=== PATIENT | male | born 1965 | race Caucasian/White ===

== ENCOUNTER 2023-08-24 13:21 | Emergency (ER) | payer BC, SELFPAY ==
[2023-08-24 13:31] VITALS: BP 133/78; PULSE 104; RESP 22; TEMP 36.7; O2SAT 97
--- NOTE | 2023-08-24 14:48 | ED.GENADUL_ITS ---
Discharge Plan Discharge Details Chief Complaint: Orthopedic Primary Care Provider: None,None ED Provider: Aden Gaspar [facility] General Date/Time Provider Initiated Documentation: 08/24/23 13:43 . HPI Narrative: 58 year-old male presents to ED today by POV/ambulating with a chief complaint of recently drove across the country to move to the area- he had a minor injury on stairs while in [place] about 2 weeks ago, since then has noticed some bruising and increased leg swelling with discoloration with onset the past few days. Quality described as painful and taut skin in his calf with some warmth to touch posterior lower calf, no radiation to medial thigh pain, history of blood clots, atrial fibrillation. Severity is described as 8/10. Palliating factors include has been using compression sock. Provoking factors include nothing [facility]. Patient has no PCP established in the area. Patient not anticoagulated. General Stated Complaint: Orthopedic JHONNY: 3 Review of Systems All systems reviewed & are unremarkable except as noted in HPI and below Exam Narrative Exam Narrative: GENERAL APPEARANCE: Well-nourished, non-toxic, awake and alert, atraumatic, no acute distress. SKIN: Warm, pink, dry, intact, without rashes/lesions/ulcerations. HEAD: Normocephalic, atraumatic, normal hair distribution for gender/age. EYES: Pupils PERRLA, EOMs intact without nystagmus, normal conjunctiva, no exudates on lids/lashes. ENT: Nares patent, no circumoral cyanosis, no facial swelling NECK: Supple, trachea midline, painless cervical ROM. LUNGS/CHEST: Non-labored respirations, normal A/P diameter, symmetrical expansion, no chest wall deformity HEART (CV/PV): Regular rate, L dorsalis pedis pulse 2+, no peripheral edema, no JVD. ABDOMEN: Soft, non-distended, no guarding. MSK: Normal ROM, no swelling/deformity to bilateral UEs or LEs, moving all extremities without weakness, no cyanosis, spine midline without tenderness, normal curvature. L LE: 3 x 2 cm area of some ruborous skin changes in the left posterior inferior calf, suspicious for superficial thrombophlebitis, he has 2+ pitting edema in this extremity, no medial thigh tenderness, Homans negative, neurovascularly intact in the distal lower extremity NEURO: Mental Status AAOx4 - alert to person, place, time, events No facial droop, no forehead involvement. Motor: No focal weakness - strength 5/5 in bilateral UEs and LEs, proximal and distal, symmetric. Sensory: sensation intact to light touch globally. Gait normal: patient ambulated without ataxia into ED room. PSYCH: euthymic, cooperative, pleasant, appropriate speech Course Vital Signs Vital signs: Vital Signs Temperature 36.7 C 08/24/23 13:31 Pulse 104 H 08/24/23 13:31 Respiratory Rate 22 08/24/23 13:31 Blood Pressure 133/78 08/24/23 13:31 Pulse Oximetry 97 08/24/23 13:31 Temperature 36.7 C 08/24/23 13:31 Temperature Source Oral 08/24/23 13:31 Pulse 104 H 08/24/23 13:31 Respiratory Rate 22 08/24/23 13:31 Respiratory Effort Normal, Non-Labored 08/24/23 13:36 Blood Pressure 133/78 08/24/23 13:31 Blood Pressure Position Sitting 08/24/23 13:31 Pulse Oximetry 97 08/24/23 13:31 Oxygen Delivery Method Room Air 08/24/23 13:31 Oxygen Flow Rate 0 08/24/23 13:31 Pain Level 2 08/24/23 13:31 Medical Decision Making This dictation utilizes [id number] dictation software and may contain unedited grammatical errors. 58 y/o M presents to ED today with a chief complaint of L LE swelling post minor injury on stairs 2 weeks ago in [place], recently drove across the country to move here- having increased swelling, pitting edema, and some skin changes suspicious for clot pathology. Patients' medical history: no atrial fibrillati on, no clot history. Family and social history: recent sedentary period driving from [place] to here. Pertinent exam findings / vital signs include L LE: 3 x 2 cm area of some ruborous skin changes in the left posterior inferior calf, suspicious for superficial thrombophlebitis, he has 2+ pitting edema in this extremity, no medial thigh tenderness, Homans negative, neurovascularly intact in the distal lower extremity. Differential / pathologies of concern include superficial thrombophlebitis, strain, lymphedema, less likely DVT. Diagnostic studies of: -D-dimer, U/S not available today - discussed risk factors, and area of his skin changes as well away from the deep venous system, patient prefers to wait for anticoagulation until U/S available likely tomorrow in ED- has no PCP follow-up for outpatient study. Interventions of: -Compression wrap. ED Course/Assessment/Plan: 58-year-old male presents with left calf swelling some skin changes suspicious for superficial thrombophlebitis, he is concerned for blood clot. He did just recently drive from [place] to here to move to the area and has no PCP follow-up. I discussed D-dimer as well as his skin changes being well away from the deep venous system and depending on D-dimer result he may opt for Lovenox and return for ultrasound versus just returning for ultrasound as he has no medial thigh tenderness and Homans is negative, do not suspect cellulitic pathology, this may be dependent edema after a sprain of his knee that he suffered 2 weeks ago in [place] with bruising to the left fibular head area. Patient signed out to Vaishnavi Evans PA-C with D-dimer pending. Findings not consistent with DVT - . Disposition of Left Lower Leg Pain. Patient verbalized understanding of the plan and return to ED criteria and engaged in shared decision making. Quality:[facility] Related Social Needs: No Data to Display [facility] Social History Smoking risk assessment performed?: No Sign Out Sign Out Data: Sign Out Comment: Possible superficial thrombophelbitis or DVT, or dependent edema in setting of knee sprain and obesity. Pending D-dimer, Potential Lovenox or DOAC and return to ED for official U/S Last updated by Aden Gaspar PA at 08/24/23 15:40
[2023-08-24 15:50] LABS: D-Dimer 615 ng/mlFEU (<500)
--- NOTE | 2023-08-24 16:21 | NUR.NOTE ---
Referral given to Care Managers for assistance Establishing a Primary Care Provider as soon as available.
[2023-08-24 16:41] VITALS: PULSE 90; RESP 15; O2SAT 98
== END 2023-08-24 16:48 | disposition home or self-care (01) ==
PROVIDERS: Physician Assistant; Emergency Provider Physician Assistant
DX: R22.42 Localized swelling, mass and lump, left lower limb (principal); R79.1 Abnormal coagulation profile
CPT/HCPCS: 99283; 85379

== ENCOUNTER 2023-08-25 13:30 | Emergency (ER) | payer BC, SELFPAY ==
[2023-08-25 13:33] VITALS: BP 156/76; PULSE 93; RESP 16; TEMP 37.1; O2SAT 98
--- NOTE | 2023-08-25 13:42 | ED.GENADUL_ITS ---
Discharge Plan Disposition Patient Disposition: Home Condition: Stable Discharge Details Clinical Impression: Left leg swelling, Hematoma Primary Care Provider: None,None ED Provider: Miguel Ángle Vasques Home Meds and New Rx's Prescriptions: Continued amlodipine 5 mg tablet 5 mg PO DAILY lisinopril 20 mg tablet 20 mg PO DAILY hydrochlorothiazide 25 mg tablet 25 mg PO DAILY levothyroxine 137 mcg capsule 137 mcg PO DAILY Discharge Instructions Instructions: Hematoma (ED) Additional Instructions: The ultrasound did not show any blood clot, you do have a hematoma Can continue using the compression stockings and keep your leg elevated is much as possible If not improving within 1 to 2 weeks he can follow-up with express care You feel more ill, or have severe worsening pain return to the emergency department for reevaluation HPI General Mode of arrival: ambulatory . Date/Time Provider Initiated Documentation: 08/25/23 13:31 . Limitations to Documentation: no limitations . Information obtained by: patient . History of Present Illness 58 year old M presents to the emergency department with the chief complaint of Follow-up after ultrasound, left lower leg discomfort/swelling, described as moderate, Quality is described as aching, Patient started experiencing this week(s) (2) and it has been constant. No relieving factors improve symptom(s), No exacerbating factors reported . Patient notes no other symptoms.. Related Data Home Medications Medication Instructions Recorded Confirmed amlodipine 5 mg tablet 5 mg PO DAILY 08/24/23 08/25/23 hydrochlorothiazide 25 mg tablet 25 mg PO DAILY 08/24/23 08/25/23 levothyroxine 137 mcg capsule 137 mcg PO DAILY 08/24/23 08/25/23 lisinopril 20 mg tablet 20 mg PO DAILY 08/24/23 08/25/23 Allergies Allergy/AdvReac Type Severity Reaction Status Date / Time No Known Allergies Allergy Unverified 08/25/23 13:36 General Stated Complaint: Recheck JHONNY: 4 Review of Systems All systems reviewed & are unremarkable except as noted in HPI and below Constitutional Constitutional: Denies chills, Denies fever(s) and Denies weakness Cardiovascular Cardiovascular: Denies chest pain and Denies dyspnea Respiratory Respiratory: Denies cough and Denies dyspnea Gastrointestinal Gastrointestinal: Denies abdominal pain, Denies nausea and Denies vomiting Neurologic Neurologic: Denies weakness Exam Const General: no acute distress Orientation: alert HENMT Head: normal to inspection Ears: external ears normal General nose exam: external nose normal Mouth: moist mucous membranes Eyes General: appearance normal, both eyes and all related structures Neck Neck: normal visual inspection Resp Effort & Inspection: normal respiratory effort and able to speak in complete sentences Cardio Rate: regular rate Skin General skin exam: no rashes or lesions noted Neuro General: patient alert and patient oriented x3 Extrem General: full ROM and capillary refill normal Psych Mental Status: mental status grossly normal Course Vital Signs Vital signs: Vital Signs Temperature 37.1 C 08/25/23 13:33 Pulse 93 H 08/25/23 13:33 Respiratory Rate 16 08/25/23 13:33 Blood Pressure 156/76 H 08/25/23 13:33 Pulse Oximetry 98 08/25/23 13:33 Temperature 37.1 C 08/25/23 13:33 Temperature Source Temporal Artery Scan 08/25/23 13:33 Pulse 93 H 08/25/23 13:33 Respiratory Rate 16 08/25/23 13:33 Respiratory Effort Normal, Non-Labored 08/25/23 13:37 Blood Pressure 156/76 H 08/25/23 13:33 Blood Pressure Position Sitting 08/25/23 13:33 Pulse Oximetry 98 08/25/23 13:33 Oxygen Delivery Method Room Air 08/25/23 13:33 Oxygen Flow Rate 0 08/25/23 13:33 Medical Decision Making 58-year-old male who recently moved to the area and drove across country from [place] comes in after he just had an ultrasound of his left lower leg. He he tripped on stairs a few weeks ago and has had some discomfort of his left lower calf and swelling since, which worsened while he was driving here across the country. He was seen yesterday in the ER and had an elevated D-dimer so came back today for an ultrasound, per the biofuels technology development manager he has no DVT but does have appearance of a hematoma. Patient has some discomfort in the left calf otherwise feels well, has intact sensation and pulses in the foot, does have some bruising of the left posterior calf, does have full range of motion at the knee and ankle. No pain at the insertion site of the Achilles tendon. Signs and ultrasound consistent with hematoma, advised he should keep his leg elevated is much as possible, he is stable for discharge and return precautions given. He has no signs of infection on exam no erythema no warmth so doubt abscess. Differential Diagnosis Differential Diagnosis: Hematoma, muscle strain Quality:SDOH Health Related Social Needs: No Data to Display PFSH All Active Problems (Updated 08/25/23 @ 13:43 by Miguel Ángel Vasques MD) Hematoma (Acute) Left leg swelling (Acute) Social History Smoking/Tobacco Use Status: Never Smoking risk assessment performed?: Yes Alcohol Intake: current Alcohol Intake frequency: 0-2 drinks per day Alcohol type: hard liquor Substance use type: does not use Housing: house Do you feel safe at home: Yes Do you feel safe in your relationship?: Yes
== END 2023-08-25 13:52 | disposition home or self-care (01) ==
PROVIDERS: Emergency Provider Emergency Medicine
DX: T14.8XXA Other injury of unspecified body region, initial encounter (principal); M79.89 Other specified soft tissue disorders; W10.8XXA Fall (on) (from) other stairs and steps, initial encounter; R22.42 Localized swelling, mass and lump, left lower limb
CPT/HCPCS: 99281; 99282

== ENCOUNTER 2024-04-21 02:35 | Outpatient (CLI) | payer BC, SELFPAY ==
[2024-04-21 09:13] LABS: ALT 64 U/L (16-63); AST 26 U/L (15-37); Albumin 3.6 g/dL (3.4-5.0); Alkaline Phosphatase 118 U/L (46-116); Anion Gap 11.3 mmol/L (3-11); BUN 19 mg/dL (7-18); Bilirubin, Total 0.56 mg/dL (0.2-1.0); CO2 25.7 mmol/L (21.0-32.0); CREATININE 1.3 mg/dL (0.70-1.30); Calcium 8.6 mg/dL (8.5-10.1); Calculated LDL 111 mg/dL (<100); Chloride 104 mmol/L (98-107); Cholesterol 182 mg/dL (<200); Estimated GFR 64.07 (mL/min/1.73m2); Glucose 109 mg/dL (74-106); HDL Cholesterol 47 mg/dL (40-60); Potassium 4.3 mmol/L (3.5-5.1); Sodium 141 mmol/L (136-145); TSH 8.23 uIU/mL (0.36-3.74); Total Protein 7.4 g/dL (6.4-8.2); Triglyceride 122 mg/dL (<150)
[2024-04-21 09:50] LABS: FREE T4 1.04 ng/dL (0.76-1.46); NT-proBNP 10 pg/mL (<300)
== END 2024-04-21 02:36 | disposition home or self-care (01) ==
LOC: LBO 02:35
PROVIDERS: PCP Nurse Practitioner Family; Referring Provider Nurse Practitioner Family; Visit Provider Nurse Practitioner Family
DX: I10 Essential (primary) hypertension (principal); E05.00 Thyrotoxicosis with diffuse goiter without thyrotoxic crisis or storm; R60.0 Localized edema; Z00.00 Encounter for general adult medical examination without abnormal findings; R74.8 Abnormal levels of other serum enzymes
CPT/HCPCS: 36415; 80053; 80061; 83880; 84439; 84443

== ENCOUNTER 2024-05-04 01:04 | Outpatient (CLI) | payer BC, SELFPAY ==
--- NOTE | 2024-05-04 06:45 | DI.US_ITS ---
APPROVED REPORT EXAM: Comprehensive 2D, Doppler, and color-flow Echocardiogram Patient Location: Out-Patient Machine Icer: Devika Jefferson RDCS (AE) Indications: Hypertension, Edema Other Information Study Quality: Poor. Technically limited study due to body habitus. Conclusion Technically difficult and very suboptimal study Normal left ventricular wall thickness chamber size and systolic function. Ejection fraction is 55 t o 60%. No wall motion abnormalities are identified Normal right ventricular size Both atria are normal in size Aortic valve is trileaflet and mildly sclerotic without stenosis or regurgitation Within the limits of the study no additional valvular disease is identified Wall motion Left Ventricle The left ventricle is normal size. The overall left ventricular systolic function appears normal. The re is normal left ventricular wall thickness. Regional wall motion is grossly normal. There is no markie tricular septal defect visualized. LVEF is 55-60%. Right Ventricle Right ventricle is grossly normal in size. Atria The left atrium size is normal. The right atrium size is normal. The interatrial septum is intact wit h no evidence for an atrial septal defect. Aortic Valve The aortic valve is mildly sclerotic Aortic valve is trileaflet. There is no aortic valvular stenosis . No aortic regurgitation is present. Mitral Valve The mitral valve is normal in structure. No evidence of mitral valve stenosis. Trace mitral regurgita tion. Tricuspid Valve The tricuspid valve is normal in structure. There is no tricuspid valve stenosis. Trace tricuspid reg urgitation. Unable to assess PA pressure. Pulmonic Valve The pulmonary valve is normal in structure. There is no pulmonic valvular stenosis. Trace pulmonic re gurgitation. Great Vessels The aortic root is normal in size. The ascending aorta is normal in size. IVC is normal in size and c ollapses >50% with inspiration. Pericardium There is no pericardial effusion. 2D Dimensions IVSD d PLAX 0.94 cm M: 0.6-1.2 Ao Root d 2.98 cm M: 3.1 - 3.7 LVPW d PLAX 0.94 cm M: 0.6 - 1.2 Ao Asc Diam d 3.08 cm M: 2.6 - 3.4 LVID d PLAX 4.77 cm M: 4.2 - 5.8 LVDs 3.24 cm M: 2.5 - 4.0 LV EF Teichholz 60.1 % FS 32.00 % LV EDV (Teich) 105.8 mL LV ESV (Teich) 42.2 mL Auto EF LV EDV A4C 125.6 mL LV EDV A2C 99.4 mL LV EDV BP 111.3 mL LV ESV A4C 56.5 mL LV ESV A2C 44.9 mL LV ESV BP 51.0 mL LVEF(%) A4C 55.0 % LVEF(%) A2C 54.8 % LVEF(%) BP 54.2 % LV SV A4C 69.0 ml LV SV A2C 54.4 ml LV SV BP 60.3 ml LV CO A4C 6.1 L/min LV CO A2C 4.7 L/min LV CO BP 5.4 L/min HR A4C 88.46 BPM HR A2C 86.54 BPM LV EDV Index (BP) LA Volume LA Length A4C 5.0 cm LA Length A2C 4.1 cm LA Area A4C s 13.90 cm2 LA Area A2C s 13.06 cm2 LA Vol A4C A-L 32.81 mL LA Vol A2C A-L 35.47 mL LA Vol Biplane A-L 37.8 mL LA Vol/BSA A4C A-L LA Vol/BSA A2C A-L LA Vol/BSA BP A-L 30.2 mL/m2 LA Vol A4C MOD 31.1 mL LA Vol A2C MOD 33.6 mL LA Vol BP MOD 35.7 mL LV Diastology MV E' medial 0.108 (>0.07 m/s) MV E Vmax 0.74 (0.4-1.3 m/s) MV E/E' MED 6.81 (<14) MV A Vmax 0.80 (0.4-1.3 m/s) MV E' lateral 0.099 (>0.1 m/s) E/A Ratio 0.9 MV E/E' LAT 7.43 (<14) MV E' Average 0.104 m/s MV E/E'(average) 7.11 Aortic Valve AoV Vmax 1.15 m/s LVOT Vmax 0.94 m/s AoV Peak Grad 5.3 mmHg LVOT Peak Grad 3.5 mmHg AoV Area (Vmax) 2.55 cm2 LVOT VTI 0.233 m AoV VTI 0.263 m LVOT Mean Grad 2.1 mmHg AoV Mean Brown. 0.85 m/s LVOT SV 72.48 mL AoV Mean Grad 3.3 mmHg LVOT Diam s 1.95 cm AoV Area (VTI) 2.76 cm2 AV Regurg Peak Gr. 5.27 mmHg Velocity Ratio 0.82 Mitral Valve MV DT 212 (160-240 msec) MV Vmax TIPS 0.93 m/s MV Mean Grad 2.0 (<2mmHg) MV VTI 0.184 m Pulmonary Valve PV Vmax 1.22 (0.5-1.5 m/s) RVOT Vmax 0.83 m/s PV Peak Grad 5.9 mmHg RVOT Peak Gr. 2.8 mmHg PV Mean Brown 0.82 m/s RVOT VTI 0.184 m PV Mean Grad 3.1 mmHg RVOT Mean Gr. 1.4 mmHg Tricuspid Valve TV S' 0.14 m/s
== END 2024-05-04 01:24 ==
LOC: DI 01:04
PROVIDERS: PCP Nurse Practitioner Family; Visit Provider Internal Medicine Cardiovascular Disease
DX: I10 Essential (primary) hypertension (principal); R60.0 Localized edema
CPT/HCPCS: 93306

== ENCOUNTER 2024-07-07 13:30 | Emergency (ER) | payer BC, SELFPAY ==
[2024-07-07 13:33] VITALS: BP 139/86; PULSE 97; RESP 17; TEMP 36.9; O2SAT 98
[2024-07-07 13:38] VITALS: BP 139/86; PULSE 97; RESP 17; TEMP 36.9; O2SAT 98
--- NOTE | 2024-07-07 13:45 | DI.RAD_ITS ---
Exam(s) XR CHEST 2V PA LATERAL EXAM: XR CHEST 2V PA LATERAL CLINICAL HISTORY: cough, fever TECHNIQUE: 2D digital imaging was performed of the chest. Two images were obtained. PA and lateral views were obtained. COMPARISON: No exams were available for comparison FINDINGS: MEDIASTINUM: Normal. HEART: Normal. PULMONARY VASCULATURE: Normal. LUNGS: Clear. PLEURAL SPACE: No pleural effusion or pneumothorax. BONE:Within normal limits for the patient's age. OTHER FINDINGS:Normal. IMPRESSION: No acute pulmonary findings. DATA REPOSITORY: RADIATION DOSE DELIVERED:
--- NOTE | 2024-07-07 13:56 | ED.GENADUL_ITS ---
Discharge Plan Disposition Patient Disposition: Home Condition: Stable Discharge Details Clinical Impression: Influenza A, Cough Primary Care Provider: Carolina Inman ED Provider: Miguel Ángel Vasques Home Meds and New Rx's Prescriptions: New oseltamivir 75 mg capsule 75 mg PO Q12H 5 Days Qty: 10 0RF Continued meloxicam 15 mg tablet 15 mg PO DAILY Qty: 30 1RF levothyroxine 150 mcg tablet 150 mcg PO DAILY Qty: 90 3RF tirzepatide 5 mg/0.5 mL pen injector 5 mg subcut QWEEK MDD 5 mg 28 Days Qty: 2 12RF Rx Instructions: Inject 5 mg tirzepatide subcutaneously once weekly as directed. 06/09/2023 PLEASE FILL WITH ZEPBOUND NOT MOUNJARO amlodipine 5 mg tablet 5 mg PO DAILY lisinopril 20 mg tablet 20 mg PO DAILY hydrochlorothiazide 25 mg tablet 25 mg PO DAILY Discharge Instructions Additional Instructions: Your x-ray did not show any concerning findings, you are positive for the flu virus. Make sure you are drinking plenty of fluids to stay hydrated. If you are not improving in a few days follow-up with your primary care provider. If you feel more ill or have new symptoms such as severe worsening shortness of breath return to the emergency department for reevaluation. HPI General Mode of arrival: ambulatory . Date/Time Provider Initiated Documentation: 07/07/24 13:34 . Limitations to Documentation: no limitations . Information obtained by: patient . History of Present Illness 59 year old M presents to the emergency department with the chief complaint of cough, de scribed as moderate, Patient started experiencing this day(s) (2) and it has been constant. No relieving factors improve symptom(s), No exacerbating factors reported . Patient notes cough; denies shortness of breath. Patient did receive the following treatments prior to arrival, none Related Data Home Medications ?Medication ?Instructions ?Recorded ?Confirmed amlodipine 5 mg tablet 5 mg PO DAILY 08/24/23 07/07/24 hydrochlorothiazide 25 mg tablet 25 mg PO DAILY 08/24/23 07/07/24 lisinopril 20 mg tablet 20 mg PO DAILY 08/24/23 07/07/24 levothyroxine 150 mcg tablet 150 mcg PO DAILY #90 tabs 05/05/24 07/07/24 tirzepatide 5 mg/0.5 mL 5 mg (0.5 mL) subcut QWEEK 28 days 06/08/24 07/07/24 subcutaneous pen injector #2 mL meloxicam 15 mg tablet 15 mg PO DAILY #30 tabs 06/21/24 07/07/24 oseltamivir 75 mg capsule 75 mg PO Q12H 5 days #10 caps 07/07/24 Previous Rx's ?Medication ?Instructions ?Recorded levothyroxine 150 mcg tablet 150 mcg PO DAILY #90 tabs 05/05/24 tirzepatide 5 mg/0.5 mL 5 mg (0.5 mL) subcut QWEEK 28 days 06/08/24 subcutaneous pen injector #2 mL meloxicam 15 mg tablet 15 mg PO DAILY #30 tabs 06/21/24 oseltamivir 75 mg capsule 75 mg PO Q12H 5 days #10 caps 07/07/24 General Stated Complaint: RespSymp JHONNY: 3 Review of Systems All systems reviewed & are unremarkable except as noted in HPI and below Constitutional Constitutional: Reports chills, Denies fever(s) and Denies weakness Cardiovascular Cardiovascular: Denies chest pain and Denies dyspnea Respiratory Respiratory: Denies cough and Denies dyspnea Gastrointestinal Gastrointestinal: Denies abdominal pain, Denies nausea and Denies vomiting Neurologic Neurologic: Denies weakness Exam Const General: no acute distress Orientation: alert [facility] Head: normal to inspection Ears: external ears normal General nose exam: external nose normal Mouth: moist mucous membranes Eyes General: appearance normal, both eyes and all related structures Neck Neck: normal visual inspection Resp Effort & Inspection: normal respiratory effort and able to speak in complete sentences Auscultation: clear to auscultation bilaterally Cardio Rate: regular rate Heart Sounds: no murmurs GI Palpation: soft and nontender Skin General skin exam: no rashes or lesions noted Neuro General: patient alert and patient oriented x3 Extrem General: normal to inspection Psych Mental Status: mental status grossly normal Course Vital Signs Vital signs: Vital Signs Temperature 36.9 C 07/07/24 13:33 Pulse 97 H 07/07/24 13:33 Respiratory Rate 17 07/07/24 13:33 Blood Pressure 139/86 07/07/24 13:33 Pulse Oximetry 98 07/07/24 13:33 Temperature 36.9 C 07/07/24 13:38 Temperature Source Temporal Artery Scan 07/07/24 13:38 Pulse 97 H 07/07/24 13:38 Respiratory Rate 17 07/07/24 13:38 Blood Pressure 139/86 07/07/24 13:38 Blood Pressure Position Sitting 07/07/24 13:36 Pulse Oximetry 98 07/07/24 13:38 Oxygen Delivery Method Room Air 07/07/24 13:36 Oxygen Flow Rate 0 07/07/24 13:36 Pain Level 5 07/07/24 13:38 Comment denies otc meds parts cataloguer 07/07/24 13:36 Medical Decision Making 59-year-old male with a history of hypertension, who comes in with several days of bodyaches, chills and cough. He denies any chest pain, difficulty breathing, vomiting, rashes, IV drug use. He is speaking full sentences on exam. Has an intermittent dry cough. His lung sounds are clear. Stable vital signs. Given his complaints we will obtain a Fluvid and chest x-ray. He has no fevers and appears well so I do not feel sepsis is likely and do not feel blood work is indicated. X-ray negative, patient is positive for flu A. He remained stable. Discussed risks benefits of Tamiflu and he would like to proceed with this. He is stable for discharge and will follow-up with his PCP if not improving. Return precaut ions given. Differential Diagnosis Differential Diagnosis: COVID, flu,Pneumonia Quality:SDOH Health Related Social Needs: No Data to Display PFSH All Active Problems (Updated 07/07/24 @ 15:15 by Miguel Ángel Vasques MD) Cough (Acute) Influenza A (Acute) Non-insertional Achilles tendinopathy (Acute) Environmental allergies (Acute) Postablative hypothyroidism (Acute) Obesity (Chronic) BMI 45.0-49.9, adult (Acute) Elevated liver enzymes (Acute) TERI (obstructive sleep apnea) (Chronic) Pain of left calf (Acute) Pain of right heel (Acute) Peripheral edema (Acute) Graves disease (Acute) Hypertension (Chronic) Preventative health care (Acute) Otalgia of left ear (Acute) Medical History (Updated 07/07/24 @ 15:15 by Miguel Ángel Vasques MD) Rosacea Diabetes Recurrent pneumonia x4 Hypertriglyceridemia without hypercholesterolemia Vitamin D deficiency Vitamin B12 deficiency Cervical stenosis of spine 2010 [place] Otitis externa of left ear Surgical History (Updated 04/13/24 @ 11:17 by Tabatha Leo) Hx of gastric bypass 2002 [place] Hx of Achilles tendon repair 2014 [place] Family History (Updated 04/13/24 @ 11:15 by Tabatha Leo) Father Asthma Diabetes Heart disease Hypertension Mother FH: uterine cancer Social History (Updated 04/13/24 @ 11:12 by Tabatha Leo) Smoking/Tobacco Use Status: Never Second Hand Exposure: No Smoking risk assessment performed?: Yes Alcohol Intake: current Alcohol Intake frequency: a few times a month Alcohol type: hard liquor Drug use: Never Substance use type: does not use Adopted: No Caregiver/Support person: No Foster care: No Household members: spouse Housing: house Number of Children: 0 number of grandchildren: 0 Communication Needs: None Education Level: master's degree Do you need help understanding health information?: Never current occupation: Technology Exec. Pets and animals: Yes Pets and animals: cat(s) Sexually active: Yes Do you think of yourself as: straight/heterosexual Current gender identity: male What is your relationship status?: How often do you talk on the phone with friends or family?: twice per week How often do you get together with friends or relatives?: never Do you belong to any clubs or organized social groups?: yes Panel score (0-1 are the most socially isolated patients): 2 What type of physical activity do you participate in: walking Duration: 15-30 minutes/day Frequency: daily Lupe/Mandaeism: None Special lupe needs: No Seatbelt use: always Helmet use: Yes Drive intox or ride w/intox mechanic welder truck driver: No Do you feel safe at home: Yes Do you feel safe in your relationship?: Yes
[2024-07-07 15:06] LABS: COVID-19 PCR Negative (Negative); Influenza A PCR Positive (Negative); Influenza B PCR Negative (Negative); RSV PCR Negative (Negative)
[2024-07-07 15:08] LABS: Source Nasopharynx
== END 2024-07-07 15:18 | disposition home or self-care (01) ==
PROVIDERS: Emergency Provider Emergency Medicine; PCP Nurse Practitioner Family
DX: J10.1 Influenza due to other identified influenza virus with other respiratory manifestations (principal); E78.1 Pure hyperglyceridemia; E11.9 Type 2 diabetes mellitus without complications; I10 Essential (primary) hypertension; Z98.84 Bariatric surgery status
CPT/HCPCS: 87637; 99284; 71046

== ENCOUNTER 2024-07-13 02:04 | Outpatient (CLI) | payer BC, SELFPAY ==
--- NOTE | 2024-07-13 07:30 | DI.RAD_ITS ---
Exam(s) XR FOOT RT COMPLETE EXAM: XR FOOT RT COMPLETE CLINICAL HISTORY: Right foot pain,M79.671. TECHNIQUE: 2D digital imaging was performed. Three views. COMPARISON: No exams were available for comparison FINDINGS: BONES: No acute fracture is present. No bony destructive lesion is seen. Large enthesophyte at the A chilles insertion. Moderate-sized plantar calcaneal spur. JOINTS: No dislocation present. Plantar arch is maintained. No significant degenerative changes. SOFT TISSUE: Normal. IMPRESSION: Prominent heel spurs. DATA REPOSITORY: RADIATION DOSE DELIVERED:
== END 2024-07-13 02:24 ==
LOC: DI 02:04
PROVIDERS: PCP Nurse Practitioner Family; Visit Provider Podiatrist
DX: M79.671 Pain in right foot (principal)
CPT/HCPCS: 73630

== ENCOUNTER 2024-07-13 03:18 | Outpatient (CLI) | payer BC, SELFPAY ==
[2024-07-13 14:02] LABS: TSH (W/Ref FT4) 4.06 uIU/mL (0.36-3.74)
[2024-07-13 14:19] LABS: FREE T4 1.23 ng/dL (0.76-1.46)
== END 2024-07-13 03:19 | disposition home or self-care (01) ==
LOC: LBO 03:18
PROVIDERS: PCP Nurse Practitioner Family; Visit Provider Nurse Practitioner Family
DX: E05.00 Thyrotoxicosis with diffuse goiter without thyrotoxic crisis or storm (principal)
CPT/HCPCS: 36415; 84439; 84443